=== PATIENT | male | born 2000 | race Two or more races ===

== ENCOUNTER 2019-07-08 14:01 | Emergency (ER) | payer OTHER ==
[2019-07-08 14:08] VITALS: BP 116/69; PULSE 85; TEMP 98.4; BMI 33.9
--- NOTE | 2019-07-08 14:08 | PDOC ---
Rapid Medical Evaluation Time Seen by Provider: 07/08/19 14:05 Medical Evaluation: Allergies Allergy/AdvReac Type Severity Reaction Status Date / Time No Known Allergies Allergy Verified 08/15/13 13:48 07/08/19 14:05 CC: Flu-like symptoms x4 days PE: Pharyngeal erythema vesicular lesions present to left sided soft palate Orders: nothing The patient will proceed to the ER for continued Evaluation. Discharge Disposition - Diagnosis Pharyngitis - Referrals - Patient Instructions - Post Discharge Activity
--- NOTE | 2019-07-08 14:50 | PDOC ---
History of Present Illness - General Chief Complaint: Cold Symptoms Stated Complaint: COLD SYMPTOMS/CHEST PAIN Time Seen by Provider: 07/08/19 14:05 History Source: Patient - History of Present Illness Timing/Duration: reports: other Past History - Past Medical History Allergies/Adverse Reactions: Allergies Allergy/AdvReac Type Severity Reaction Status Date / Time No Known Allergies Allergy Verified 07/08/19 14:08 Home Medications: Ambulatory Orders Naproxen [Naprosyn -] 500 mg PO BID PRN #14 tablet 08/15/13 No Home Medications 0 dose .ROUTE UTDICT 08/15/13 Asthma: Yes COPD: No - Psycho Social/Smoking Cessation Hx Smoking Status: No Smoking History: Never smoked Number of Cigarettes Smoked Daily: 0 Review of Systems - Review of Systems Constitutional: Yes: Malaise. No: Fever HEENTM: Yes: Ear Pain, Throat Pain Respiratory: No: Cough, Shortness of Breath *Physical Exam - Vital Signs Last Vital Signs Temp Pulse Resp BP Pulse Ox 98.4 F 85 18 116/69 98 07/08/19 14:05 07/08/19 14:05 07/08/19 14:05 07/08/19 14:05 07/08/19 14:05 - Physical Exam General Appearance: Yes: Appropriately Dressed. No: Apparent Distress HEENT: positive: EOMI, MARYJO, Normal Voice, TMs Normal, Other (red, edematous gingivae w/ small ulcerative lesions to buccal mucosa and soft palate, no tonsillar swelling/exudates) Neck: positive: Supple Respiratory/Chest: negative: Respiratory Distress Integumentary: positive: Dry, Warm Neurologic: positive: Fully Oriented, Alert, Normal Mood/Affect Medical Decision Making - Medical Decision Making 07/08/19 14:37 19-year-old male, no significant history, here with malaise with sore throat and swelling of gums x1 week. No cough shortness of breath vomiting diarrhea rash or fever. No known sick contacts. See exam Possible gingivostomatitis Rapid strep neg -Dc w/ supportive tx and good oral hygiene -PMD f/u as needed Discharge - Discharge Information Problems reviewed: Yes Clinical Impression/Diagnosis: Oral mucosal lesion, Gingival swelling Condition: Good Disposition: HOME - Follow up/Referral - Patient Discharge Instructions Patient Printed Discharge Instructions: DI for Gingivostomatitis -- Child Additional Instructions: You may have a condition called gingivostomatitis which is a common infection of the mouth and gums that most likely is caused by a virus. This condition usually resolves over 2 to 3 weeks. Usually no treatment is warranted If you need something for pain you can take Motrin [id number]. Maintain good mouth hygiene by brushing teeth regularly and using mouthwash. Avoid very spicy salty or sour food at this can irritate the sores return to ER for worsening of symptoms - Post Discharge Activity
== END 2019-07-08 15:30 | disposition home or self-care (01) ==
LOC: JERFT 14:01
DX: K13.79 Other lesions of oral mucosa (principal); K05.10 Chronic gingivitis, plaque induced
CPT/HCPCS: 87070; 87880; 99282-25

== ENCOUNTER 2024-03-07 17:39 | Emergency (ER) | payer SELFPAY ==
[2024-03-07 18:04] VITALS: BP 137/80; PULSE 94; RESP 16; TEMP 98.8; BMI 40.2
[2024-03-07] MEDS: IBUPROFEN 400 MG TABLET (FP) PO ONE (19:15)
[2024-03-07] MEDS: SULFAMETHOXAZOLE/TRIMETHOPRIM 800MG/160MG D.S. TABLET PO ONE (19:15)
[2024-03-07] MEDS ORDERED: SULFAMETHOXAZOLE/TRIMETHOPRIM 800MG/160MG D.S. TABLET ONE (19:19)
[2024-03-07] MEDS ORDERED: IBUPROFEN 400 MG TABLET (FP) PO ONE (19:19)
== END 2024-03-07 19:45 | disposition home or self-care (01) ==
LOC: JERFT 17:39 → JER 17:39 → JERFT 19:45
DX: S90.121A Contusion of right lesser toe(s) without damage to nail, initial encounter (principal); W08.XXXA Fall from other furniture, initial encounter
CPT/HCPCS: 73660-TC-FY; 99283-25